=== PATIENT | male | born 1995 | race Caucasian/White ===

== ENCOUNTER 2017-07-23 16:21 | Emergency (ER) | payer OTHER ==
[~2017-07-23] VITALS: Ht 175.3 cm; Wt 70.5 kg
[~2017-07-23 16:21] MED LIST: TAB-TAB PO
[2017-07-23] MEDS ORDERED: IOHEXOL 350 MG/ML 10 ML VIAL (for RAD DIAG) IVCONTRAST ONE (16:22)
[2017-07-23 16:24] VITALS: BP 135/75; PULSE 112; RESP 13; TEMP 98.7; O2SAT 96
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
[2017-07-23] MEDS ORDERED: methylPREDNISolone SOD SUCC 125 MG/2 ML VIAL IV PUSH ONE (19:30)
[2017-07-23] MEDS ORDERED: diphenhydrAMINE HCL 50 MG/ML VIAL IV PUSH ONE (19:30)
[2017-07-23 20:10] LABS: AUTOMATED NEUTROPHIL # 8.3 TH/MM3 (1.8-7.7); BASOPHIL % 0.2 % (0.0-2.0); EOSINOPHIL # 0.1 TH/MM3 (0-0.4); HEMATOCRIT 45.8 % (39.0-51.0); HEMOGLOBIN 15.9 GM/DL (13.0-17.0); LYMPH % 17.4 % (9.0-44.0); LYMPHOCYTE # 1.9 TH/MM3 (1.0-4.8); MEAN CELL VOLUME 88.8 FL (80.0-100.0); MEAN CORPUSCULAR HEMOGLOBIN 30.8 PG (27.0-34.0); MEAN CORPUSCULAR HGB CONC 34.7 % (32.0-36.0); MEAN PLATELET VOLUME 7.4 FL (7.0-11.0); MONO % 4.2 % (0.0-8.0); MONOCYTE # 0.4 TH/MM3 (0-0.9); NEUT % 77.2 % (16.0-70.0); PLATELET COUNT 259 TH/MM3 (150-450); RED BLOOD COUNT 5.15 MIL/MM3 (4.50-5.90); RED CELL DISTRIBUTION WIDTH 13.3 % (11.6-17.2); WHITE BLOOD COUNT 10.7 TH/MM3 (4.0-11.0)
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
[2017-07-23 20:21] LABS: ALBUMIN 3.4 GM/DL (3.4-5.0); ALT (GPT) 38 U/L (12-78); AST (GOT) 24 U/L (15-37); BICARBONATE 28.6 MEQ/L (21.0-32.0); BLOOD UREA NITROGEN 10 MG/DL (7-18); CALCIUM 8.3 MG/DL (8.5-10.1); CHLORIDE 102 MEQ/L (98-107); GLOMERULAR FILTRATION RATE 106 ML/MIN (>89); GLUCOSE,RANDOM 96 MG/DL (74-106); SODIUM (NA) 136 MEQ/L (136-145)
[2017-07-23 20:24] LABS: ALKALINE PHOSPHATASE 51 U/L (45-117); TOTAL BILIRUBIN ADULT 0.9 MG/DL (0.2-1.0); TOTAL PROTEIN 6.9 GM/DL (6.4-8.2)
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
[2017-07-23] MEDS ORDERED: PRED50 PO (20:59)
[2017-07-23 21:00] VITALS: BP 124/59
== END 2017-07-23 21:43 | disposition home or self-care (01) ==
LOC: NEPD 16:21
DX: T78.40XA Allergy, unspecified, initial encounter (principal); R10.10 Upper abdominal pain, unspecified; M79.605 Pain in left leg; R07.89 Other chest pain; Z72.0 Tobacco use; V47.6XXA Car passenger injured in collision with fixed or stationary object in traffic accident, initial encounter
CPT/HCPCS: 71260; 74177; 80053; 85025; 96374; 96375; 99285; J1200; J2930; Q9967